=== PATIENT | female | born 1965 | race Caucasian/White ===

== ENCOUNTER 2022-05-02 14:29 | Outpatient (CLI) | payer OTHER, SELFPAY ==
--- NOTE | ~2022-05-02 | US_ITS ---
EXAMINATION:US venous doppler LE BI INDICATION:Calf pain TECHNIQUE: Multiple grayscale, color flow and Doppler images of the right and left lower extremity de ep venous systems were obtained and reviewed. COMPARISON:No prior studies FINDINGS: The common femoral, superficial femoral and popliteal veins demonstrate normal respiratory variation, augmentation and compressibility. Color flow is also seen within the posterior tibial, pe roneal, greater saphenous and profunda veins. IMPRESSION: 1: No lower extremity deep venous thrombosis. Reviewed, dictated and finalized at location A.
== END 2022-05-02 14:30 | disposition home or self-care (01) ==
PROVIDERS: PCP Family Medicine Adolescent Medicine; Visit Provider Physician Assistant
DX: M79.662 Pain in left lower leg (principal); M79.89 Other specified soft tissue disorders; M79.661 Pain in right lower leg; Z86.16 Personal history of COVID-19
CPT/HCPCS: 93970